=== PATIENT | female | born 1955 | race Caucasian/White ===

== ENCOUNTER 2018-05-31 23:39 | Emergency (ER) | payer OTHER ==
[~2018-05-31] VITALS: Ht 170.2 cm; Wt 119.0 kg
[~2018-05-31 23:39] MED LIST: ALBUTEROL SULF8.5 GM IH; ANAPROX DS550 M1 PO; ASPIR-LOW81 MG PO; Coumadin Protocol PO; GABAPENTIN100 MG PO; HYZAAR 100-21 TABLET PO; Hyzaar 100-25 PO; LIDODERM 5% P1 PATCH TD; MUCUS RELIEF600 MG PO; NAPROSYN500 MG PO; NEXIUM40 MG PO; NORCO 5/3251 TABLET PO; PRAVACHOL80 MG PO; PREDNISONE20 MG PO; Percocet 5/325,Endoc PO; Pravachol PO; Protonix PO; ROBITUSSIN NIG118 ML PO; TESSALON PERLE100 MG PO; VICODIN,LORT1 TABLET PO; ZITHROMAX250 MG PO
[2018-06-01 00:46] VITALS: BP 127/86
== END 2018-06-01 00:52 | disposition home or self-care (01) ==
LOC: EME 23:39
PROC: 0HQLXZZ Repair Left Lower Leg Skin, External Approach (ICD-10-PCS; principal; 2018-05-31)
DX: I83.892 Varicose veins of left lower extremity with other complications (principal); I10 Essential (primary) hypertension; E78.5 Hyperlipidemia, unspecified
CPT/HCPCS: 99281; 99284